=== PATIENT | male | born 1970 | race Caucasian/White ===

== ENCOUNTER 2021-10-23 09:17 | Outpatient (CLI) | payer OTHER, SELFPAY ==
--- NOTE | 2021-10-28 15:16 | WPDHOLTEREM ---
Holter/Event Monitor Holter/Event Monitor Date of procedure: 10/23/21 Holter/Event Procedure: 24 Hr Holter Monitor Indications: Conduction disorder Conclusion: 1. 24 hour holter monitor on 10/23/21. 2. Underlying rhythm is sinus rhythm. HR range 45-133 bpm; average HR 71 bpm. 3. There are 13 premature supraventricular complexes. No supraventricular tachycardia. 4. There are 3,612 premature ventricular complexes, 146 ventricular bigeminy and 46 ventricular trigeminy. No ventricular tachycardia. 5. No sinoatrial or atrioventricular blocks. No significant pauses greater than 2 seconds. 6. No symptoms available for correlation.
== END 2021-10-23 09:18 | disposition home or self-care (01) ==
PROVIDERS: PCP Family Medicine; Visit Provider Family Medicine
DX: I45.9 Conduction disorder, unspecified (principal); I10 Essential (primary) hypertension
CPT/HCPCS: 93225; 93226

== ENCOUNTER 2022-03-12 06:59 | Outpatient (CLI) | payer OTHER, SELFPAY ==
--- NOTE | 2022-03-30 16:07 | WPDHOMESLEEP ---
Sleep Study - Home Unattended Date of Study: 03/12/22 Ordering Provider: Abdullahi Us DO Interpreting Provider: Penelope Dimas DO Home Sleep Study Type: Watch PAT Height: 1.93 m Weight: 124.738 kg Body Mass Index: 33.5 Neck Circumference (inches): 17 [place]: 11 Reason for Sleep Study Daytime hypersomnia Sleep History The patient is a 51-year-old male with hypertension that had a sleep study ordered by his school patrol for evaluation of sleep apnea. He denies awakening from sleep short of breath. He denies awakening at night with heartburn, belching or cough. He frequently snores loud enough that others complain. He rarely has trouble sleeping when he has a cold. He denies waking up gasping for air throughout the night. He occasionally has breathing problems at night observed by himself or others. He rarely sweats excessively at night. He rarely has heart palpitations or irregular heartbeats during the night. He occasionally falls asleep during the day and occasionally falls asleep while driving. He denies sleep paralysis, cataplexy and hypnagogic / hypnopompic hallucinations. He rarely has trouble at school or work due to sleepiness. He denies feeling afraid of going to sleep. He rarely has nightmares. He occasionally remembers his dreams. He frequently has thoughts racing through his mind. He occasionally feels sad, depressed or anxious. He occasionally has muscular tension. He rarely notices parts of his body jerk. He denies kicking during the night. He denies having crawling and aching feelings in his legs as well as leg pain during the night. He denies grinding his teeth during sleep and denies awakening with morning jaw pain. He denies being awakened by pain during the day and denies being awakened by pain during the night. He rarely wakes up feeling stiff in the morning. He denies waking up with sore achy muscles. He occasionally wakes up with pain in the neck, spine or other joints. The patient goes to bed at 9:30 p.m. on weekdays and at 10:00 p.m. on the weekends. It takes him a few minutes to fall asleep. He wakes up 2-3 times throughout the night to urinate. He is able to fall back asleep within a few minutes. He wakes up at 3:45 a.m. on weekdays and at 6:00 a.m. on the weekends. He typically gets 6 and hours of sleep. He will stay in bed for 5-10 minutes after waking up in the morning. He currently lives with his . He does not consume any caffeinated beverages within 2 hours of bedtime. He does not engage in physical exercise before bedtime. He will watch television before falling asleep. He denies taking naps in the afternoon or the evening. He drinks 1 caffeinated soda per day. He drinks 3-4 beers per week. He denies tobacco and recreational drug use. [facility] Past Medical History Medical History Amputation finger BMI 30.0-30.9,adult BMI 32.0-32.9,adult BMI 33.0-33.9,adult BMI 34.0-34.9,adult Edema Elevated blood pressure, situational Essential hypertension Screening for lipid disorders Screening for prostate cancer Skipped heart beats Stress at home Family History Family History Father Cerebrovascular accident Neuropathy COPD (chronic obstructive pulmonary disease) Mother Hypertension Social History Social History Smoking status: Never smoker Alcohol intake: current Medications Home Medications Medication Instructions Recorded Confirmed Type amlodipine 10 mg tablet 10 mg PO DAILY #90 tabs 01/22/22 03/22/22 Rx omega 1-lcn-oyg-fish oil 1,000 mg 1 cap PO DAILY 01/22/22 03/22/22 History (120 mg-180 mg) capsule (Fish Oil) Sleep Procedure The sleep study was completed using [employer] a technically adequate device with seven channels: peripheral arterial tone, actigraphy, body position, snore, respiratory movement, pulse oximetry, sleep stag
[2022-03-30 16:15] VITALS: BMI 33.5
== END 2022-03-15 11:43 | disposition home or self-care (01) ==
PROVIDERS: PCP Family Medicine; Visit Provider Internal Medicine Cardiovascular Disease
DX: G47.10 Hypersomnia, unspecified (principal); G47.33 Obstructive sleep apnea (adult) (pediatric)
CPT/HCPCS: 95800

== ENCOUNTER 2022-03-19 14:31 | Outpatient (CLI) | payer OTHER, SELFPAY ==
--- NOTE | 2022-03-19 14:41 | ECHO_ITS ---
Patient Info Name: Manjeet Deras Age: 51 years : 1970 Gender: Male Ht: 76 in Wt: 275 lbs BSA: 2.62 m2 HR: 78 bpm BP: 138 / 91 mmHg Heart Rhythm: Sinus Rhythm Technical Quality: Fair Exam Date: 03/19/2022 2:56 PM Exam Location: [facility] Pulmonary Patient Status: Outpatient Admit Date: 03/19/2022 Staff Ordering Physician: Abdullahi Us DO Insurance Adjuster: Becca Najera RDCS Attending Provider: Abdullahi Us DO Referring Physician: Magen EUBANKS; Exam Type: CA echo doppler color flow Study Info Indications R06.09 - Other forms of dyspnea Complete two-dimensional, color flow and Doppler transthoracic echocardiogram is performed. Summary 1. Complete two-dimensional, color flow and Doppler transthoracic echocardiogram is performed. 2. Left ventricular chamber dimension is normal. 3. Left ventricular systolic function is normal, estimated at 60-65%. 4. There is moderately increased left ventricular wall thickness. 5. The left ventricular diastolic function is grade I diastolic dysfunction. 6. E/e' 13 is mildly elevated. 7. Left atrial chamber dimension is mildly enlarged. 8. There is trace tricuspid valve regurgitation. 9. No pulmonary hypertension, estimated pulmonary arterial systolic pressure is 15 mmHg. 10. There is trivial pericardial effusion. Left Ventricle E/e' 13 is mildly elevated. Left ventricular chamber dimension is normal. Left ventricular systolic function is normal, estimated at 60-65%. There is moderately increased left ventricular wall thickness. The left ventricular diastolic function is grade I diastolic dysfunction. Right Ventricle Right ventricular systolic function is normal and with normal TAPSE 2.9 cm. Right ventricular chamber dimension is normal. Left Atria Left atrial chamber dimension is mildly enlarged. Right Atria Right atrial chamber dimension is normal. Aortic Valve The aortic valve is trileaflet. There is no aortic valve stenosis. There is no aortic valve regurgitation. Pulmonic Valve There is no pulmonic regurgitation. Mitral Valve There is no mitral valve stenosis. There is no mitral valve regurgitation. Tricuspid Valve There is trace tricuspid valve regurgitation. No pulmonary hypertension, estimated pulmonary arterial systolic pressure is 15 mmHg. Pericardium/Pleural There is trivial pericardial effusion. Inferior Vena Cava Normal inferior vena cava with >50% collapse upon inspiration consistent with normal right atrial pressure, 5 mmHg. Aorta The aortic root size at the sinus of Valsalva is normal. Left Ventricular Outflow Tract Name Value Normal LVOT 2D LVOT Diameter 2.4 cm LVOT Doppler LVOT Peak Gradient 6 mmHg LVOT Mean Gradient 3 mmHg LVOT VTI 24 cm LVOT VTI/AV VTI Ratio 0.7 LVOT Stroke Volume 114 ml LVOT CO 7.4 l/min LVOT CI 2.8 l/min/m2 Pulmonic Valve
== END 2022-03-19 14:32 | disposition home or self-care (01) ==
LOC: ANHCARD 14:33
PROVIDERS: PCP Family Medicine; Visit Provider Internal Medicine Cardiovascular Disease
DX: R06.09 Other forms of dyspnea (principal)
CPT/HCPCS: 93306

== ENCOUNTER 2022-04-19 11:50 | Outpatient (CLI) | payer OTHER, SELFPAY ==
--- NOTE | ~2022-04-19 | US_ITS ---
EXAMINATION:US venous doppler LE RT INDICATION:Lower extremity edema TECHNIQUE: Multiple grayscale, color flow and Doppler images of the right lower extremity deep venous systems were obtained and reviewed. COMPARISON:No prior studies for comparison. FINDINGS: The common femoral, superficial femoral and popliteal veins demonstrate normal respiratory variation, augmentation and compressibility. Color flow is also seen within the posterior tibial, pe roneal and profunda veins. There is superficial thrombosis of the right greater and lesser saphenous veins. IMPRESSION: 1: No lower extremity deep venous thrombosis. 2: Superficial venous thrombosis of the right greater and lesser saphenous veins. Reviewed, dictated and finalized at location B. R SALES IMPRESSION: 1: No lower extremity deep venous thrombosis. 2: Superficial venous thrombosis of the right greater and lesser saphenous vei ns.
== END 2022-04-19 11:51 | disposition home or self-care (01) ==
PROVIDERS: PCP Family Medicine; Visit Provider Internal Medicine Cardiovascular Disease
DX: R60.9 Edema, unspecified (principal); I82.811 Embolism and thrombosis of superficial veins of right lower extremity
CPT/HCPCS: 93971

== ENCOUNTER 2022-06-25 02:52 | Day surgery (SDC) | payer OTHER, SELFPAY ==
[2022-06-15 14:09] VITALS: BMI 34.0
[2022-06-25 09:08] VITALS: BP 147/90; PULSE 80; RESP 20; TEMP 36.4; O2SAT 100
[2022-06-25] MEDS: LACTATED RINGERS 1,000 ML 150 ML IV CONT (09:10)
--- NOTE | 2022-06-25 09:35 | WPDANESEPPF ---
Anes - Initial Pre Proc Eval Procedure: Operation Date: 06/25/22 10:15 Proposed Procedures p Screening Colonoscopy - Chava Reyna MD Date/Time: 06/25/22 09:35 Surgeon: Chava Reyna MD Pre Op Diagnosis: neoplasm screening Patient Data Age: 51 Gender: M Height: 1.93 m Weight: 127.5 kg Last Vital Signs Temp 36.4 C 06/25/22 09:08 Pulse 80 06/25/22 09:08 Resp 20 06/25/22 09:08 BP 147/90 H 06/25/22 09:08 Pulse Ox 100 06/25/22 09:08 O2 Del Method Room Air 06/25/22 09:08 Allergies Allergy/AdvReac Type Severity Reaction Status Date / Time No Known Allergies Allergy Mild Verified 06/25/22 09:07 Home Medications Medication Instructions Recorded Confirmed Type amlodipine 10 mg tablet 10 mg PO DAILY #90 tabs 01/22/22 06/25/22 Rx omega 5-kzz-ljs-fish oil 1,000 mg 1 cap PO DAILY 01/22/22 06/25/22 History (120 mg-180 mg) capsule (Fish Oil) apixaban 5 mg tablet (Eliquis) 5 mg PO BID #120 tabs 05/13/22 06/25/22 Rx Patient hx anesthesia problems: none Family hx anesthesia problems: none Results Review: All pre-operative results and documents have been reviewed as part of the pre-operative evaluation. PMFSH Past Medical History Medical History Amputation finger BMI 30.0-30.9,adult BMI 32.0-32.9,adult BMI 33.0-33.9,adult BMI 34.0-34.9,adult BMI over 35 Edema Elevated blood pressure, situational Essential hypertension Screening for lipid disorders Screening for prostate cancer Skipped heart beats Stress at home Family History Family History Father Cerebrovascular accident Neuropathy COPD (chronic obstructive pulmonary disease) Mother Hypertension Sibling No problems noted. Social History Social History Smoking status: Never smoker Second hand tobacco smoke exposure: No Alcohol intake: current Drinks per week: 3 Substance use: never Substance use type: does not use Lack of Transportation: No Lack of Food: Never True Current Housing: I Have Housing Concerned About Future Housing: No Difficulty Paying Gas/Electric Bills: No Difficulty Paying for Meds: No Currently Unemployed: No Education: Bachelor's Degree Difficulty w/ Childcare or Family Care: No Living arrangements: with family Occupation/Education: occupation Additional occupation/education comments: Back [employer] Gender identity (if verbalized by the patient): Male Spiritual care concerns: No Anes - Eval Final PreProcedure Day of Procedure 06/25/22 09:35 Patient weight: obese Heart: regular rate and rhythm Lungs: clear to auscultation and normal air movement Airway: Mallampati scale class II Neurological: alert and oriented Last oral intake: >/= 8 hours ASA classification: III Emergent: no Anesthetic plan: proceed Anesthesia type and monitoring: general GIVS Results Review: All pre-operative results and documents have been reviewed as part of the pre-operative evaluation. Informed Consent: The patient's anesthetic plan and its attendant risks and benefits were discussed with the patient/family/POA. Questions were solicited and answers provided to the satisfaction of the patient/family/POA.
--- NOTE | 2022-06-25 09:50 | PM.HPGS ---
History of Present Illness History of Present Illness Consent: Risks, benefits, and alternatives have been discussed and questions answered. Patient agrees to proceed with procedure. Chief complaint: neoplasm screening Narrative: Manjeet Deras is a 51 year old male here for first screening colonoscopy Review of Systems Constitutional: Constitutional: Denies headache(s) and Denies weakness Eyes: Eyes: Denies blurry vision ENT: Reports Normal hearing present, Denies headache(s) and Denies neck pain Cardiovascular: Cardiovascular: Denies chest pain and Denies dyspnea Respiratory: Respiratory: Denies dyspnea Gastrointestinal: Gastrointestinal: Reports no additional gastrointestinal complaints Genitourinary: Genitourinary: Denies dysuria Musculoskeletal: Musculoskeletal: Denies neck pain Integumentary/Breasts: Skin/Breast: Denies dry skin Neurologic: Reports Normal hearing present, Denies headache(s) and Denies weakness Psychiatric: Psychiatric: Denies anxiety Endocrine: Endocrine: Denies change in body appearance Hematologic/Lymphatic: Hematologic/Lymphatic: Denies easy bleeding Allergic/Immunologic: Allergic/Immunologic: Denies urticaria PMFSH Past Medical History Medical History Amputation finger BMI 30.0-30.9,adult BMI 32.0-32.9,adult BMI 33.0-33.9,adult BMI 34.0-34.9,adult BMI over 35 Edema Elevated blood pressure, situational Essential hypertension Screening for lipid disorders Screening for prostate cancer Skipped heart beats Stress at home Family History Family History Father Cerebrovascular accident Neuropathy COPD (chronic obstructive pulmonary disease) Mother Hypertension Sibling No problems noted. Social History Social History Smoking status: Never smoker Second hand tobacco smoke exposure: No Alcohol intake: current Drinks per week: 3 Substance use: never Substance use type: does not use Lack of Transportation: No Lack of Food: Never True Current Housing: I Have Housing Concerned About Future Housing: No Difficulty Paying Gas/Electric Bills: No Difficulty Paying for Meds: No Currently Unemployed: No Education: Bachelor's Degree Difficulty w/ Childcare or Family Care: No Living arrangements: with family Occupation/Education: occupation Additional occupation/education comments: Nurses Director Gender identity (if verbalized by the patient): Male Spiritual care concerns: No Meds Home Medications and Allergies Home Medications Medication Instructions Recorded Confirmed Type amlodipine 10 mg tablet 10 mg PO DAILY #90 tabs 01/22/22 06/25/22 Rx omega 3-xmz-wgr-fish oil 1,000 mg 1 cap PO DAILY 01/22/22 06/25/22 History (120 mg-180 mg) capsule (Fish Oil) apixaban 5 mg tablet (Eliquis) 5 mg PO BID #120 tabs 05/13/22 06/25/22 Rx Allergies Allergy/AdvReac Type Severity Reaction Status Date / Time No Known Allergies Allergy Mild Verified 06/25/22 09:07 Vital Signs Vital Signs - 24 hr 06/25/22 09:08 Temperature 97.6 F Pulse Rate 80 Respiratory Rate 20 Blood Pressure 147/90 H Pulse Oximetry 100 Oxygen Delivery Room Air Exam Const: General: comfortable and no acute distress HENMT: Face/Nose/Sinus: Normal nares present Eyes: General: appearance normal, both eyes and all related structures Neck: Neck: no JVD Resp: Auscultation: clear to auscultation bilaterally Cardio: Rate: regular rate Rhythm: regular rhythm GI: Inspection: non-distended GI Palp: Yes Soft to palpation Skin: General skin exam: normal color Neuro: General: gait normal Speech: normal speech Extrem: General: normal to inspection Psych: Mental Status: mental status grossly normal Assessment and Plan Assessment and plan (1) Screening for malignant neoplasm of colon: Code(s): Z12.11 - Encounter for
[2022-06-25 10:36] VITALS: BP 109/77; PULSE 63; RESP 18; O2SAT 100
[2022-06-25 10:46] VITALS: BP 104/64; PULSE 65; RESP 18; O2SAT 99
[2022-06-25 10:56] VITALS: BP 115/81; PULSE 58; RESP 18; O2SAT 99
== END 2022-06-25 11:02 | disposition home or self-care (01) ==
PROVIDERS: PCP Family Medicine; Visit Provider Internal Medicine Gastroenterology
PROC: 0DJD8ZZ Inspection of Lower Intestinal Tract, Via Natural or Artificial Opening Endoscopic (ICD-10-PCS; CPT 45378; principal; 2022-06-25 10:15)
DX: Z12.11 Encounter for screening for malignant neoplasm of colon (principal); K63.5 Polyp of colon; K64.8 Other hemorrhoids; I10 Essential (primary) hypertension; F10.90 Alcohol use, unspecified, uncomplicated; Z82.49 Family history of ischemic heart disease and other diseases of the circulatory system
CPT/HCPCS: 45385; 88305; J2001; J2704; J7120

== ENCOUNTER 2022-09-15 11:21 | Emergency (ER) | payer OTHER, SELFPAY ==
--- NOTE | ~2022-09-15 | CT_ITS ---
EXAMINATION: CTA BRAIN/CAROTID DATE: 09/15/2022 12:48 INDICATION: Vertigo TECHNIQUE: Computed tomographic angiography (CTA) of the head and neck was performed with 100 mL Omni paque-350 intravenous contrast. Multiplanar reconstructions and maximum intensity projection 3D-recon structions of the carotid arteries and of the intracranial arteries were created by the technologist on a separate workstation. Precontrast CT of the head was also obtained. Automated exposure control and iterative reconstruction technique were employed.The dose-length product was 1887.30 mGy-cm. COMPARISON: None. FINDINGS: Carotid arteries: Visualized portion of the thoracic aorta is normal in caliber with no dissection or evident atheroscl erosis. Normal variant independent origin of the left vertebral artery arising directly from the aort ic arch. There is no evident atherosclerotic plaque with 0% stenosis of the right and left carotid bu lbs relative to normal distal artery lumen diameter (NASCET criteria). Cervical soft tissues are unre markable. Mild dependent atelectasis in the visualized upper lungs. Mild cervical spondylosis. Head: No acute intracranial hemorrhage, acute infarction or abnormal extra axial fluid collection. Ventricl es are normal and symmetric. No mass/mass effect. No abnormally enhancing brain lesions. The orbits, paranasal sinuses and mastoid air cells are normal. Intracranial arteries There is no hemodynamically significant stenosis in the vertebral, basilar and internal carotid arter ies. Vertebral arteries are codominant. There are no aneurysms identified. Both A1 and P1 segments a re patent. The left P1 segment is diminutive with additional supply to the posterior cerebral artery supplied via a larger caliber left posterior commuting artery. There is also a patent right posterior commuting artery which is of smaller caliber than the right P1 segment. Cerebral arterial arborizati on appears symmetric. IMPRESSION: 1. 0% stenosis of the right and left carotid bulbs relative to normal distal artery lumen diameter (N ASCET criteria). 2. Normal brain and cerebral CT angiogram with no aneurysm or evident cerebral arterial stenosis. Reviewed, dictated and finalized at location A. IMPRESSION: 1. 0% stenosis of the right and left carotid bulbs relative to normal distal ar amrik lumen diameter (NASCET criteria). 2. Normal brain and cerebral CT angiogram with no aneurysm or evident cerebral arterial stenosis.
[2022-09-15 11:24] VITALS: BP 138/100; PULSE 76; RESP 16; TEMP 37.1; O2SAT 100
--- NOTE | 2022-09-15 11:28 | ECG_ITS ---
Measurements Intervals [place] Rate: 65 P: 51 ME: 175 QRS: 8 QRSD: 109 T: 36 QT: 412 QTc: 430 Interpretive Statements SINUS RHYTHM LATERAL MYOCARDIAL INFARCTION , OF INDETERMINATE AGE [40+ ms Q WAVE AND/OR ST/T ABNORMALITY IN I/aVL/V5/V6] NO PREVIOUS ECG AVAILABLE FOR COMPARISON Electronically Signed On 09-15-2022 15:57:16 CDT by Becki Whittington M.D.
[2022-09-15] MEDS: PROMETHAZINE HCL 25 MG/ML AMPUL 12.5 MG IV PUSH (11:52)
[2022-09-15 12:10] LABS: Basophils Percent Auto 0.3 % (0.2-1.2); Eosinophils Percent Auto 0.6 % (0-4.4); Hematocrit 38.6 % (42.0-52.0); Hemoglobin 13.1 g/dL (14.0-18.0); Immature Granulocyte Absolute 0.02 K/mm3 (0.00-0.031); Immature Granulocyte Percent A 0.3 % (0-0.5); Lymphocytes Absolute Auto 1.11 K/mm3 (0.9-3.2); Lymphocytes Percent Auto 17.2 % (18.3-44.2); Mean Corpuscular HGB Conc 33.9 g/dl (32-36); Mean Corpuscular Hemoglobin 27.5 pg (26-34); Mean Corpuscular Volume 81.1 fl (80-100); Mean Platelet Volume 9.9 fl (7.4-10.4); Monocytes Absolute Auto 0.3 K/mm3 (0.1-0.6); Monocytes Percent Auto 4.7 % (2.6-8.5); Neutrophils Percent Auto 76.9 % (45.5-73.1); Platelet Count Result 171 k/mm3 (150-375); Red Blood Count 4.76 M/mm3 (4.6-6.20); Red Cell Distribution Width 13.2 % (11.5-14.5); White Blood Count 6.4 K/mm3 (4.5-10.0)
--- NOTE | 2022-09-15 12:17 | ED.DIZZY ---
HPI - Dizziness General Chief Complaint: Dizziness Stated Complaint: dizziness Time Seen by Provider: 09/15/22 12:04 History of Present Illness HPI Narrative: Patient is a 52-year-old male with a history of hypertension, hyperlipidemia, MILDRED presenting with vertigo. Patient states that he started using a CPAP machine several months ago and since then he has had ongoing sinus problems. States that he has been taking Claritin per his PCPs recommendation which was working until about a week ago. States that his sinuses have been increasingly clogged over the last week. States that he has had a couple episodes of vertigo. Today she was at work and while in the meeting he experienced persistent vertigo. States that he tried to walk it off but he became nauseated and very warm. States that he had an episode of emesis. EMS was called and he received Zofran with improvement in his nausea. Patient states that if he stays completely still the vertigo resolves and then it returns if he moves. He also complains that his left ear feels clogged. He denies any pain. No headache, chest pain, back pain. No shortness of breath, palpitations, lightheadedness, leg swelling, fevers or chills. Related Data Home Medications Medication Instructions Recorded Confirmed omega 3-mnz-siy-fish oil 1,000 mg 2 cap PO DAILY 08/16/22 08/16/22 (120 mg-180 mg) capsule (Fish Oil) Allergies Allergy/AdvReac Type Severity Reaction Status Date / Time No Known Allergies Allergy Mild Verified 09/15/22 11:30 Review of Systems Review of Systems: All systems reviewed & are unremarkable except as noted in HPI and below PMFSH Past Medical History Medical History Amputation finger BMI 30.0-30.9,adult BMI 32.0-32.9,adult BMI 33.0-33.9,adult BMI 34.0-34.9,adult BMI over 35 Constipation Edema Elevated blood pressure, situational Essential hypertension Nasal congestion Screening for lipid disorders Screening for prostate cancer Skipped heart beats Stress at home Family History Family History Father Cerebrovascular accident Neuropathy COPD (chronic obstructive pulmonary disease) Mother Hypertension Sibling No problems noted. 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 HEAD: Normocephalic, atraumatic. EYES: PERRLA and EOMI. ENT: + Nasal congestion, mucous membranes moist. Moderate amount of cerumen in bilateral ear canals, visualized portions of TMs appear normal NECK: Supple. CHEST: Clear to auscultation. No respiratory distress. HEART: Regular rate and rhythm. No murmur heard. Normal peripheral pulses. ABDOMEN: Soft, nontender, nondistended EXTREMITIES: Normal range of motion. No edema. SKIN: Warm, dry, no rash. NEURO: No focal deficits. Alert and oriented x3. 5 out of 5 strength in all extremities, no sensory deficits, no pronator drift, coordination is intact in upper and lower extremities PSYCH: Normal mood and affect. Course Vital Signs Vital signs: Vital Signs Temperature 98.7 F 09/15/22 11:24 Pulse Rate 76 09/15/22 11:24 Respiratory Rate 16
[2022-09-15 12:21] LABS: INR 1.1; Prothrombin Time 14.2 Seconds (11.1-14.7)
[2022-09-15 12:22] LABS: Alanine Aminotransferase 25 U/L (6-50); Albumin Level 4.5 g/dL (3.5-5.1); Alkaline Phosphatase 77 U/L (38-126); Anion Gap 5 mmol/L (8-16); Aspartate Amino Transferase 26 U/L (17-59); Bilirubin,Total 0.6 mg/dL (0.2-1.3); Blood Urea Nitrogen 13 mg/dL (9-20); Carbon Dioxide 28 mmol/L (22-30); Chloride 104 mmol/L (98-107); Estimated CRCL calculation 119 ml/min; Estimated Glomerular Filt Rate > 60; Glucose 119 mg/dL (65-110); Lipase 63 U/L (23-300); Sodium 137 mmol/L (137-145)
[2022-09-15 12:30] VITALS: BP 126/86; PULSE 58; RESP 16; O2SAT 100
[2022-09-15] MEDS: MECLIZINE HCL 25 MG TABLET PO (12:32)
[2022-09-15 12:33] LABS: Troponin I < 0.012 ng/mL (0.000-0.034)
[2022-09-15] MEDS: SODIUM CHLORIDE 0.9% IV 1,000 ML 999 ML IV CONT (12:33)
[2022-09-15 15:20] VITALS: BP 138/85; PULSE 74; RESP 16; O2SAT 100
== END 2022-09-15 15:34 | disposition home or self-care (01) ==
PROVIDERS: Emergency Medicine; Emergency Provider Emergency Medicine; PCP Family Medicine
DX: H81.10 Benign paroxysmal vertigo, unspecified ear (principal); I10 Essential (primary) hypertension; E78.5 Hyperlipidemia, unspecified; G47.33 Obstructive sleep apnea (adult) (pediatric); Z89.029 Acquired absence of unspecified finger(s)
CPT/HCPCS: 36415; 70496; 70498; 80053; 83690; 84484; 85025; 85610; 85730; 93005; 96361; 96374; 99284; A9270; J2550; J7030; Q9967

== ENCOUNTER 2022-09-24 13:31 | Outpatient (CLI) | payer OTHER, SELFPAY ==
--- NOTE | ~2022-09-24 | CT_ITS ---
EXAMINATION: CT sinus wo con DATE: 09/24/2022 13:52 INDICATION: Sinusitis TECHNIQUE: Computed tomography (CT) of the paranasal sinuses was performed without intravenous contra st. The dose-length product (DLP) was 312.93 mGy-cm. Iterative reconstruction was used. COMPARISON: 09/15/2022 FINDINGS: There is normal development and pneumatization of the paranasal sinuses. There is mild muco darryn thickening inferiorly in the right maxillary sinus. The frontal, sphenoid, ethmoid, and maxillary sinuses are otherwise clear. The bilateral ostiomeatal complexes are patent. Visualized soft tissues are unremarkable. IMPRESSION: 1. Mild mucosal thickening of the right maxillary sinus. Reviewed, dictated and finalized at location B.
== END 2022-09-24 13:32 | disposition home or self-care (01) ==
PROVIDERS: PCP Family Medicine; Visit Provider Otolaryngology
DX: R09.81 Nasal congestion (principal)
CPT/HCPCS: 70486

== ENCOUNTER 2023-11-14 09:36 | Outpatient (CLI) | payer OTHER, SELFPAY ==
--- NOTE | 2023-11-14 09:59 | ECHO_ITS ---
Patient Info Name: Manjeet Deras Age: 53 years : 1970 Gender: Male Ht: 76 in Wt: 285 lbs BSA: 2.67 m2 HR: 64 bpm BP: 151 / 98 mmHg Technical Quality: Good Exam Date: 11/14/2023 10:10 AM Exam Location: Echo Lab Patient Status: Outpatient Admit Date: 11/14/2023 Staff Ordering Physician: Abdullahi Us DO Force Adjustment Supervisor: Maria Elena Cantu RDCS Attending Provider: Abdullahi Us DO Referring Physician: Maegn EUBANKS; Exam Type: CA echo doppler color flow Study Info Indications R06.09 - Other forms of dyspnea Complete two-dimensional, color flow and Doppler transthoracic echocardiogram is performed. Summary 1. Complete two-dimensional, color flow and Doppler transthoracic echocardiogram is performed. 2. Left ventricular chamber dimension is normal. 3. Left ventricular systolic function is normal, estimated at 65-70%. 4. There is moderate asymmetric septal increased left ventricular wall thickness. Mean resting LVOT gradient of 5 mmHg is minimal obstruction but does suggest hypertrophic cardiomyopathy. 5. The left ventricular diastolic function is grade I diastolic dysfunction. 6. E/e' 12 is mildly elevated. 7. Left atrial chamber dimension is severely enlarged. 8. No pulmonary hypertension, estimated pulmonary arterial systolic pressure is 23 mmHg. 9. There is trace pulmonic regurgitation. Left Ventricle There is moderate asymmetric septal increased left ventricular wall thickness. Mean resting LVOT gradient of 5 mmHg is minimal obstruction but does suggest hypertrophic cardiomyopathy. Left ventricular chamber dimension is normal. Left ventricular systolic function is normal, estimated at 65-70%. The left ventricular diastolic function is grade I diastolic dysfunction. E/e' 12 is mildly elevated. Right Ventricle Right ventricular chamber dimension is normal. Right ventricular systolic function is normal. Left Atria Left atrial chamber dimension is severely enlarged. Right Atria Right atrial chamber dimension is normal. Aortic Valve The aortic valve is trileaflet. There is no aortic valve stenosis. There is no aortic valve regurgitation. Pulmonic Valve There is trace pulmonic regurgitation. Mitral Valve There is no mitral valve stenosis. There is no mitral valve regurgitation. Tricuspid Valve There is no tricuspid valve regurgitation. No pulmonary hypertension, estimated pulmonary arterial systolic pressure is 23 mmHg. Pericardium/Pleural There is no pericardial effusion. Inferior Vena Cava Normal inferior vena cava with >50% collapse upon inspiration consistent with normal right atrial pressure, 5 mmHg. Aorta The aortic root size at the sinus of Valsalva is normal. Left Ventricular Outflow Tract Name Value Normal LVOT 2D LVOT Diameter 2.2 cm LVOT Doppler LVOT Peak Gradient 9 mmHg LVOT Mean Gradient 6 mmHg LVOT VTI 36 cm LVOT VTI/AV VTI Ratio 1.1 LVOT Stroke Volume 144 ml LVOT CO 8.8 l/min LVOT CI 3.3 l/min/m2 Pulmonic Valve
== END 2023-11-14 09:37 | disposition home or self-care (01) ==
LOC: ANHCARD 09:37
PROVIDERS: PCP Family Medicine; Visit Provider Internal Medicine Cardiovascular Disease
DX: R06.09 Other forms of dyspnea (principal); I51.89 Other ill-defined heart diseases
CPT/HCPCS: 93306

== ENCOUNTER 2024-04-27 08:15 | Emergency (ER) | payer OTHER, SELFPAY ==
--- NOTE | ~2024-04-27 | XR_ITS ---
XR chest 2V DATE: 04/27/2024 08:56 INDICATION: Difficulty breathing for 2 days. Nonsmoker. TECHNIQUE: 3 radiographs, 2 projections, including 2 frontal views COMPARISON: 12/03/2011 2 view chest FINDINGS: There is mild bibasilar infiltrate and/or atelectasis, greater on the left, with evidence o f a small left pleural effusion. The lungs are otherwise clear. Normal heart size. No hilar or mediastinal enlargement. IMPRESSION: Mild bibasilar infiltrate or atelectasis, left greater than right and small left pleural effusion Reviewed, dictated and finalized at location A. SETTER IMPRESSION: Mild bibasilar infiltrate or atelectasis, left greater than right a nd small left pleural effusion
[2024-04-27 08:24] VITALS: BP 145/93; PULSE 84; RESP 16; TEMP 36.2; O2SAT 100
--- NOTE | 2024-04-27 08:33 | ED_ITS ---
HPI - URI/Sore Throat General Chief Complaint: Upper Respiratory Infection Stated Complaint: Chest Congestion Time Seen by Provider: 04/27/24 08:34 Source: patient, RN notes reviewed and old records reviewed Mode of arrival: ambulatory Limitations: no limitations History of Present Illness HPI Narrative: Patient with history of cardiomyopathy presents with complaints of chest congestion for approximately 1 week. He reports slight cough, says he does not believe it is much worse than baseline. Denies any unusual swelling in the ankles or legs. Denies any fatigue. Reports that chest feels most congested when lying flat. Says that when he does cough, is nonproductive. T-max 99.8?. Has not been taking anything for his symptoms. Says that he came in today not because symptoms are worsening, but because they are not getting better. Related Data Home Medications Medication Instructions Recorded Confirmed omega 2-dny-dve-fish oil 1,000 mg 2 cap PO DAILY 08/16/22 04/27/24 (120 mg-180 mg) capsule (Fish Oil) triamterene 37.5 1 tablet PO DAILY 04/27/24 04/27/24 mg-hydrochlorothiazide 25 mg tablet Allergies Allergy/AdvReac Type Severity Reaction Status Date / Time No Known Allergies Allergy Mild Verified 04/27/24 08:33 Review of Systems Review of Systems: All systems reviewed & are unremarkable except as noted in HPI and below Constitutional: Constitutional: Reports no additional constitutional complaints ENT: Reports system reviewed and no additional complaints, except as documented Cardiovascular: Cardiovascular: Reports as per HPI and Reports no additional cardiovascular complaints Respiratory: Respiratory: Reports as per HPI and Reports no additional respiratory complaints Gastrointestinal: Gastrointestinal: Reports no additional gastrointestinal complaints [facility] Past Medical History Medical History Amputation finger BMI over 35 Cerumen impaction Constipation Edema Elevated blood pressure, situational Essential hypertension 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 Gender identity (if verbalized by the patient): Male Spiritual care concerns: No Exam Const: General: cooperative, no acute distress, alert and awake Orientation/consciousness: oriented to person, oriented to place and oriented to time HENMT: Head: normal to inspection Mouth: Yes moist mucous membranes Resp: Effort & Inspection: normal respiratory effort and able to speak in complete sentences Auscultation: clear to auscultation bilaterally, no crackles, no rales, no rhonchi and no wheezes Cardio: Palpation: normal PMI Rate: regular rate Rhythm: regular rhythm Heart sounds: S1 normal heart sound present and S2 normal heart sound present Neuro: General: oriented to person, oriented to place and oriented to time Cranial nerves: Yes CN's II-XII intact bilaterally Psych: Appearance: grossly normal Thought process: Normal thought process present Insight: Good insight present (Psych) Judgement: Good judgement present (Psych) Course Course Level of Care: Express Care Visit Vital Signs Vital signs: Vital Signs Temperature 97.2 F L 04/27/24 08:24 Pulse Rate 84 04/27/24 08:24 Respiratory Rate 16 04/27/24 08:24 Blood Pressure 145/93 H 04/27/24 08:24 Pulse Oximetry 100 04/27/24 08:24 Oxygen Delivery Room Air 04/27/24 08:24 Temperature 97.2 F L 04/27/24 08:24 Pulse Rate 84 04/27/24 08:24 Respiratory Rate 16 04/27/24 08:24 Blood Pressure 145/93 H 04/27/24 08:24 Pulse Oximetry 100 04/27/24 08:24 Oxygen Delivery Room Air 04/27/24 08:24 MDM - URI/Sore Throat MDM Narrative Medical decision making narrative: Chest x-ray concerning for bibasilar pneumonia and right pleural effusion. Patient advised follow-up with primary care provider and casino attendant without fail. Emergency department immediately for new or worse symptoms. He verbalizes understanding Discharge instructions reviewed with patient, as well as provided in writing per nursing staff. The instructions also include specific and strict return/GO TO THE ER as well as f/u information. All questions have been answered, and the patient deny any further questions with discharge and discharge plan. Some parts of this dictation were generated by voice recognition software and may contain typographical and/or grammatical inaccuracies. Differential Diagnosis Differential diagnosis: Likely upper respiratory infection, otitis media, viral infection, influenza and pharyngitis Medical Records Attestation: I reviewed the patient's medical records. Imaging Data My impression: Bibasilar infiltrate, right pleural effusion Radiologist's impression: [facility] [address] [place] [address] XRay Report Signed Patient: Manjeet Deras : 1970 MR#: [id number] Age: 53 Acct:[id number] Loc: [facility] ADM Date: 04/27/24Attending Dr: Ordering Physician: Inge Parker FNP Date of Service: 04/27/24 Procedure(s): XR chest 2V Accession Number(s): [id number] cc: Inge Parker FNP; Sarah Joel KEY ATTENDANT~ XR chest 2V DATE: 04/27/2024 08:56 INDICATION: Difficulty breathing for 2 days. Nonsmoker. TECHNIQUE: 3 radiographs, 2 projections, including 2 frontal views COMPARISON: 12/03/2011 2 view chest FINDINGS: There is mild bibasilar infiltrate and/or atelectasis, greater on the left, with evidence of a small left pleural effusion. The lungs are otherwise clear. Normal heart size. No hilar or mediastinal enlargement. IMPRESSION: Mild bibasilar infiltrate or atelectasis, left greater than right and small left pleural effusion Reviewed, dictated and finalized at location A. OUS CHLORIDE HELPER Dictated By: Hector Merritt MD 04/27/24 0900 Signed By: <Electronically signed by Hector Merritt MD in OV> Discharge Plan Discharge Clinical Impression: Pneumonia Qualifiers: Pneumonia type: due to unspecified organism Laterality: bilateral Lung location: lower lobe of lung Qualified Code(s): J18.9 - Pneumonia, unspecified organism Patient Disposition: Home, Self-Care Condition: Stable Instructions: Antibiotic Form, Community Acquired Pneumonia (ED) Additional Instructions: Take medications as prescribed. Follow-up with casino attendant and primary care provider without fail, emergency department immediately for any new or worse symptoms Patient Language: Chinese Prescriptions: New azithromycin 250 mg tablet See Rx Instructions .ROUTE .COMPLEX Qty: 6 0RF Rx Instructions: For 250 mg dose pack: take 500 mg today (day 1), then 250 mg for 4 days (days 2-5) albuterol sulfate [Ventolin HFA] 90 mcg/actuation HFA aerosol inhaler 2 puff inhalation QID PRN (Reason: shortness of breath or wheezing) Qty: 8.5 0RF No Action triamterene-hydrochlorothiazid 37.5-25 mg tablet 1 tablet PO DAILY omega 3-wmo-zib-fish oil [Fish Oil] 1,000 mg (120 mg-180 mg) capsule 2 cap PO DAILY amlodipine 5 mg tablet See Rx Instructions .ROUTE .COMPLEX Qty: 90 3RF Dose Instruction: TAKE 1 TABLET BY MOUTH EVERY DAY Rx Instructions: TAKE 1 TABLET BY MOUTH EVERY DAY metoprolol succinate 25 mg tablet extended release 24 hr 25 mg PO DAILY Qty: 90 2RF Follow-up/Referrals: Sarah Joel SENIOR TECHNICAL WRITER [Primary Care Provider] - 3 Days Stand Alone Forms: Work/School Release IP Time of Disposition: 09:31
== END 2024-04-27 09:36 | disposition home or self-care (01) ==
PROVIDERS: Emergency Provider Nurse Practitioner Family; PCP Nurse Practitioner Family
DX: J18.9 Pneumonia, unspecified organism (principal); I10 Essential (primary) hypertension
CPT/HCPCS: 71046; 99213; G0463

== ENCOUNTER 2024-05-10 15:26 | Outpatient (CLI) | payer OTHER, SELFPAY ==
--- NOTE | ~2024-05-10 | XR_ITS ---
EXAMINATION: XR chest 2V DATE: 05/10/2024 15:34 INDICATION: Pneumonia with 2 weeks of continued cough TECHNIQUE: frontal and lateral views of the chest were obtained. COMPARISON: Chest radiograph dated 04/27/2024 FINDINGS: There is a small somewhat nodular opacity projecting over the posterior left lung base T11 vertebral body on the lateral projection. No other airspace opacities, pulmonary edema, pleural effusion or pne umothorax. The cardiomediastinal silhouette is normal. Visualized bones and soft tissues are unremark able. IMPRESSION: 1. Indeterminate nodular airspace opacity projecting over the posterior left lung base which could be related to residual pneumonia but does raise some concern for neoplasm. Consider further evaluation with low-dose noncontrast chest CT. Reviewed, dictated and finalized at location A. H AUGER OPERATOR IMPRESSION: 1. Indeterminate nodular airspace opacity projecting over the posterior left sonido ng base which could be related to residual pneumonia but does raise some concer n for neoplasm. Consider further evaluation with low-dose noncontrast chest CT.
== END 2024-05-10 15:27 | disposition home or self-care (01) ==
LOC: MICIMG 15:26
PROVIDERS: PCP Internal Medicine Cardiovascular Disease; Visit Provider Nurse Practitioner Adult Health
DX: R91.8 Other nonspecific abnormal finding of lung field (principal); J18.9 Pneumonia, unspecified organism
CPT/HCPCS: 71046

== ENCOUNTER 2024-05-21 07:55 | Outpatient (CLI) | payer OTHER, SELFPAY ==
--- NOTE | ~2024-05-21 | CT_ITS ---
EXAMINATION:CT diagnostic chest w con DATE: 05/21/2024 08:47 INDICATION: Solitary pulmonary nodule. Abnormal chest radiograph. TECHNIQUE: Computed tomography (CT) of the chest was performed with 75 mL Omnipaque 350 intravenous c ontrast. Automated exposure control and iterative reconstruction technique were employed. The dose-le ngth product (DLP) was 829.85 mGy-cm. COMPARISON: Chest CT 06/29/2004, chest 2 views 05/10/2024, 04/27/2024 FINDINGS: There are airspace opacities in basilar left lower lobe. There is a 7 mm nodule in right mi ddle lobe abutting the major fissure. No pleural effusion. The heart size is normal. No pericardial e ffusion. There is mild bilateral gynecomastia. There is mild thoracic spondylosis. IMPRESSION: 1. Airspace opacities in basilar left lower lobe, consistent with pneumonia. 2. 7 mm nodule in right middle lobe, probably benign. Noncontrast low-dose chest CT is recommended in 6-12 months. Reviewed, dictated and finalized at location [] GY ADVISOR IMPRESSION: 1. Airspace opacities in basilar left lower lobe, consistent with pneumonia. 2. 7 mm nodule in right middle lobe, probably benign. Noncontrast low-dose ches t CT is recommended in 6-12 months.
[2024-05-21 08:42] LABS: Estimated Glomerular Filt Rate 58
--- OUTSIDE RECORDS SUMMARY | 2024-05-28 11:32 | XMS_ITS | Referral Summary ---
Author Organization [facility] Address [address] [place] [address] Care Team Providers Care Captain Waiter Name Role Phone Roe Bull MD Primary Care Provider [phone] Source Comments [facility],non-owned Affiliates and Associated Physician Practices is amultiple site organization consisting of ambulatory clinics and hospital sitesin [place], [place], [place] and [place]. This disclosure is being madepursuant to the Care Everywhere program and may not contain all information available regarding this patient. Last updated 18.[facility] [email or web address] (formerly [email or web address] Allergies No known active allergies Medications * Be aware that medications may not be up to date on this document. Alwaysverify current medications with the patient. Medication Sig Dispensed Refills Start Date End Date Status amLODIPine (Norvasc) 5 MG tablet Take 1 (one) tablet by mouth once daily 10/27/2022 Active Eliquis 5 MG tablet Take 1 (one) tablet by mouth 2 times daily 08/03/2022 Active Social History Tobacco Use Types Packs/Day Years Used Date Smoking Tobacco: Never Smokeless Tobacco: Never Tobacco Cessation:Counseling Given: Not Answered Alcohol Use Standard Drinks/Week Comments Not Currently 0 (1 standard drink = 0.6 oz pur e alcohol) Sex and Gender Information Value Date Recorded Sex Assigned at Not on file Gender Identity Not on file Sexual Orientation Not on file Last Filed Vital Signs Vital Sign Reading Time Taken Comments Blood Pressure - - Pulse - - Temperature - - Respiratory Rate - - Oxygen Saturation - - Inhaled Oxygen Concentration - - Weight 124.7 kg (275 lb) 12/01/2022 8:33 AM CDT Height 193 cm (6' 4 ) 12/01/2022 8:33 AM CDT Body Mass Index 33.47 12/01/2022 8:33 AM CDT Plan of Treatment Not on file Care Teams Captain Waiter Relationship Specialty Start Date End Date Roe Bull MD [address] [place] [address] PCP - General Family Medicine 12/01/22
--- OUTSIDE RECORDS SUMMARY | 2024-05-28 11:32 | XMS_ITS | Clinical Summary ---
Author Organization [facility] Address [address] [place] [address] Care Team Providers Care Accordion Maker Name Role Phone Roe Bull MD Primary Care Provider [phone] Source Comments [facility],non-owned Affiliates and Associated Physician Practices is amultiple site organization consisting of ambulatory clinics and hospital sitesin [place], [place]. This disclosure is being madepursuant to the Care Everywhere program and may not contain all information available regarding this patient. Last updated 18.[facility] [employer] Allergies No known active allergies Medications * [...] 12/01/2022 8:33 AM CDT Plan of Treatment Health Maintenance Due Date Last Done Comments COLOGUARD (AGES 45-75) - COL ON CA SCREENING 1970 COLON MONITORING 1970 COLONOSCOPY - COLON CA SCREENING 1969 CT COLONOGRAPHY - COLON CA SCREENING 1970 Colorectal Cancer Screening 1970 FIT - COLON CA SCREENING 1970 FLEX SIG - COLON CA SCREENING 1970 LIPID TESTING 1970 HIV SCREENING 1984 HEPATITIS C SCREENING 08/16/1987 DTAP/TDAP/TD VACCINES (1 - Tdap) 1988 HEPATITIS B VACCINE (1 of 3 - 19+ 3-dose series) 1988 ZOSTER VACCINE (1 of 2) 08/21/2019 SCREENING FOR DIABETES 12/01/2022 DEPRESSION SCREENING 05/30/2023 COVID-19 VACCINE ( - 2023-2 5 season) 2024 INFLUENZA VACCINE (#1) 2024 HIB VACCINE Aged Out No longer eligi ble based on patient's age to complete this topic HPV VACCINE Aged Out No longer eligi ble based on patient's age to complete this topic MENINGOCOCCAL VACCINE Aged Out No shira lara eligible based on patient's age to complete this topic PNEUMOCOCCAL VACCINE Aged Out No long er eligible based on patient's age to complete this topic Care Teams Accordion Maker Relationship Specialty Start Date End Date Roe Bull MD [address] [place] [address] PCP - General Family Medicine 12/01/22
--- OUTSIDE RECORDS SUMMARY | 2024-05-28 11:32 | XMS_ITS | Patient Health Summary ---
Author Organization [facility] Address [address] [place] [address] Care Team Providers Care Corporation Officer Name Role Phone Roe Bull MD Primary Care Provider [phone] Note from [facility],non-owned Affiliates and Associated Physician Practices is amultiple site organization consisting of ambulatory clinics and hospital sitesin [place], [place], [place] and [place]. This disclosure is being madepursuant to the Care Everywhere program and may not contain all information available regarding this patient. Last updated 18.[facility] Allergies No known active allergies Medications * Be aware that medications may not be up to date on this document. Alwaysverify current medications with the patient. * amLODIPine (Norvasc) 5 MG tablet(Started 10/27/2022) Take 1 (one) tablet by mouth once daily * Eliquis 5 MG tablet(Started 08/03/2022) Take 1 (one) tablet by mouth 2 times daily Social History Tobacco Use Types Packs/Day Years [...] Mass Index 33.47 12/01/2022 8:33 AM CDT Procedures * XR KNEE RIGHT 4VW OR MORE(Performed 12/01/2022) Performed for Chronic pain of right knee Results * XR KNEE RIGHT 4VW OR MORE (12/01/2022 8:35 AM CDT) Anatomical Region Laterality Modality Lower Extremity Computed Radiogr aphy Narrative 12/01/2022 8:34 AM CDT Daysi Emmanuel ? 12/02/2022 10:37 AM Please see progress notes for xray results Tab Blackmon MD DIAGNOSTIC IMAGING O RDERABLES Care Teams Corporation Officer Relationship Specialty Start Date End Date Roe Bull MD [address] [place] [address] PCP - General Family Medicine 12/01/22
--- OUTSIDE RECORDS SUMMARY | 2024-05-28 11:32 | XMS_ITS | Encounter Summary ---
Author Organization [facility] Address [address] [place] [address] Care Team Providers Care Neurophysiological Technician Name Role Phone Roe Bull MD Primary Care Provider [phone] Reason for Referral * OP/Amb RFL Auth (Routine) - Closed Specialty Diagnoses / Procedures Referred By Aram t Referred To Contact Diagnoses Effusion of right knee Procedures CO DRAIN/INJECT LARGE [place]INT/[place] [id number] [address] Referral ID Status Reason Start Date Expiration Date Visits Re quested Visits Authorized [id number] Closed 12/01/2022 12/01/2023 1 1 Reason for Visit * Reason Comments Establish Care New patient for righ t knee pain Encounter Details Date Type Department Care Team (Late st Contact Info) Description 12/01/2022 8:10 AM CDT Office Visit [facility] Orthopedics [id number] [place] [id number] [place] [id number] [address] [phone] Chronic pain of right knee (Primary Dx); Effusion of right knee Social History Tobacco Use Types Packs/Day Years Used Date Smoking Tobacco: Never Smokeless Tobacco: Never Tobacco Cessation:Counseling Given: Not Answered Alcohol Use Standard Drinks/Week Comments Not Currently 0 (1 standard drink = 0.6 oz pur e alcohol) Sex and Gender Information Value Date Recorded Sex Assigned at Not on file Gender Identity Not on file Sexual Orientation Not on file documented as of this encounter Last Filed Vital Signs Vital Sign Reading Time Taken Comments Blood Pressure - - Pulse - - Temperature - - Respiratory Rate - - Oxygen Saturation - - Inhaled Oxygen Concentration - - Weight 124.7 kg (275 lb) 12/01/2022 8:33 AM CDT Height 193 cm (6' 4 ) 12/01/2022 8:33 AM CDT Body Mass Index 33.47 12/01/2022 8:33 AM CDT documented in this encounter Progress Notes * Tab Blackmon MD - 12/01/2022 12:01 PM CDT [facility] Orthopedic [facility] Note Patient Name: Manjeet Deras Date of : 1970 Date of Service: 12/01/2022 CHIEF COMPLAINT Chief Complaint Patient presents with ??? Establish Care New patient for right knee pain HISTORY OF PRESENT ILLNESS Manjeet Deras is a 52 year old male who presents today as a new patient for evaluation of right knee pain. The patient reports that he has a history of arthroscopic type surgery on his right knee [id number]. He states that he is unable to remember the injury; however, he believes it was the ligamentson the lateral aspect of his knee. He relates that ever since then, he has had intermittent pain inhis knee; however, his pain usually lasts for a for a few days and resolves. The patient conveys that approximately 3 to 4 weeks ago, the pain returned and has not resolved. He conveys that over the weekend, that his knee symptoms exacerbated when trying to stand after sitting for a few minutes. He notes that his knee was significantly stiff, and he was unable to move his knee after sitting. He conveys that his pain is improved today, and he is able to ambulate on his right lower extremity. Thepatient denies any injuries. He conveys that he has experienced swelling in the knee, especially over this past weekend. He localizes his pain to the medial aspect of the knee. The patient conveys that his pain is alleviated with rest, staying active, and moving. He conveys that he has been starting to walk more on the treadmill, and he noticed his knee symptoms worsened after 2 months of this exercise. He conveys that he has been taking Tylenol, which is slightly beneficial.; however, Tylenol is not as beneficial as ibuprofen has been in the past. The patient conveys that he has been icing the knee as needed for swelling. He has not previously undergone cortisone injections in the knee. The patient reports that he was diagnosed with hypertension early in the year. He states that as a result of that, his primary care physician advised him that he needed to exercise. He conveys that he is utilizing Eliquis, however, this will be discontinued soon. 12/01/2022 8:13 AM Patient-entered Ortho Intake Form Referring provider Relative Reason for visit Right Knee What are your symptoms? Pain Stiffness How did this pain/injury begin? Started about 3 weeks ago. No injury caused it. When did your pain/injury start? 3 weeks ago Does any other area/part of your body hurt? No Active Worker's Comp claim? No Pain level at rest 1 Pain level with activity 6 What makes your pain worse? Standing Treatments tried Over the counter pain medication Currently employed? Yes Smoking status Never Alcohol intake? No Taking opioid/narcotic? No 12/01/2022 8:09 AM Patient-Reported Satisfaction Current state satisfactory? No Prior treatment? No Currently taking narcotics? No 12/01/2022 8:15 AM PROMIS Pain Interference PROMIS PI Score 63 (moderate) 12/01/2022 8:16 AM PROMIS Physical Function PROMIS PF Score 39 (moderate dysfunction) 12/01/2022 8:15 AM Patient-entered KOOS JR Laterality Right Knee KOOS JR Score 59.38 12/01/2022 8:16 AM Depression Screening PHQ-2 Score 0 (Further screening not recommended) PAST HISTORY ??? Medical: No past medical history on file. ??? Surgical: No past surgical history on file. SOCIAL HISTORY Social History Occupational History ??? Not on file Tobacco Use ??? Smoking status: Never ??? Smokeless tobacco: Never Vaping Use ??? Vaping Use: Never used Substance and Sexual Activity ??? Alcohol use: Not Currently ??? Drug use: Not on file ??? Sexual activity: Not on file FAMILY HISTORY No family history on file. CURRENT MEDICATIONS Current Outpatient Medications on File Prior to Visit Medication Sig Dispense Refill ??? amLODIPine (Norvasc) 5 MG tablet Take 1 (one) tablet by mouth once daily ??? Eliquis 5 MG tablet Take 1 (one) tablet by mouth 2 times daily No current facility-administered medications on file prior to visit. ALLERGIES No Known Allergies ??? Vitals Ht 1.93 m (6' 4 ) Wt 124.7 kg (275 lb) BMI 33.47 kg/m?? Body mass index is 33.47 kg/m??. PHYSICAL EXAM Neurological - Coordination: Balance is normal. - Sensation: Sensation is intact to light touch in the bilateral lower extremities. Psychiatric - Orientation to Time, Place, Person: Normal. - Attention span and Concentration: Alert. - Mood and Affect: Normal for current situation. No acute distress. Cardiovascular - Extremities: No swelling in upper or lower extremities other than described below in the extremity exam. Extremities are warm and well-perfused. Lymphatic - Examination: No pitting edema noted in the lower extremities. Musculoskeletal - Gait and Station: Normal gait without assistive devices. Station normal. - Lower Extremity: Right knee. - Examination - Inspection: Skin is intact. No erythema. No ecchymosis. Mild intra-articular knee joint effusion. - Palpation: No tenderness to palpation along the medial or lateral parapatellar borders. Exquisitetenderness to palpation in the middle one-third medial joint line. - Range of Motion: From 0 degrees of extension to 135 degrees of flexion with complaints of pain and tightness. - Stability: Patella is stable to medial and lateral translation. Stable to valgus stress with complaints of medial-sided pain. Stable to varus. - Special Tests: - Patellar Grind: Negative. - Arcadia's: Negative. - Anterior Drawer: 1A. - Posterior Drawer: Stable. - Pivot Shift: Negative. - George: Stable. - Amy: Positive for medial joint line pain. - Lower Extremity: Left knee. - Examination - Inspection: Skin is intact. No erythema or ecchymosis. No appreciable intra- articular knee joint effusion. Asymptomatic medial plica. - Palpation: No tenderness to palpation along the medial or lateral joint line. - Range of Motion: From 0 degrees of extension to 135 degrees of flexion. - Stability: Patella is stable to medial and lateral translation. Stable to varus and valgus stresstesting at 0 and 30 degrees. - Special Tests: - Patellar Grind: Negative. - Arcadia's: Negative. - Anterior Drawer: Stable. - Posterior Drawer: Stable. - Amy: Negative. - George: Stable. Skin - Examination: No lesions noted on upper or lower extremities. Skin is dry, warm and with normal turgor. RESULTS Four weight-bearing views of the right knee were ordered, obtained, and interpreted from an orthopedic standpoint on today's date. These demonstrate no acute fractures or dislocations. Kellgren-Jadiel grade 2 changes within the medial compartment on AP and PA flexed view. No evidence of patella mary or baja. Questionable intra-articular knee joint effusion. Patella is well centered within the trochlear groove on sunrise view. ASSESSMENT ??? Chronic right knee pain, likely medial meniscus tear. ??? Right knee effusion. PLAN ??? Chronic right knee pain, likely medial meniscus tear. ??? Right knee effusion. - Patient Education and Counseling: We had a discussion regarding the patient's symptoms and treatment options. The patient was instructed to avoid aggravating activities. I discussed in detail with the patient regarding his symptoms and complaints. I recommended initiating conservative care. We will trial an intra- articular cortisone injection in the right knee. The risks and benefits of a corticosteroid injection were discussed with the patient and all questions were answered. I provided him with a physician-directed home exercise program. I discussed the use of cold therapy, compressive sleeves and braces, relative rest, and activity modification. He is not a current candidate for anti-in flammatory medications; however, he will be discontinuing his anticoagulation soon, at which time he states he would like to get back on prescription strength [id number] anti-inflammatory medications, as that has previously provided him with good relief of symptoms. If he fails to improve or resolve over the next 4 to 6 weeks, I would recommend proceeding with an MRI due to the high likelihood of medial meniscus pathology, given his subjective complaints, physical exam findings, and well-preserved joint surfaces on weight-bearing radiographs. - Recommended Treatment: Cortisone injection. Home exercise program. Cold therapy. Compressive sleeves and braces. Relative rest. Activity modification. - Patient Agreements: The patient agreed to proceed with a knee corticosteroid injection today. Thepatient was in agreement with the above treatment plan. The patient will call with any concerns. PROCEDURE Knee Injection - Indications: Right knee pain. - Description: The proposed injection site over the right knee was cleansed with alcohol and ChloraPrep. Ethyl chloride spray was used to anesthetize the injection site and a 1.5-inch, 25-gauge needle was used to introduce 1 mL of Kenalog and 3 mL of sterile saline as a vehicle into the right knee using an anterolateral approach. Good flow of medication was noted. The injection site was dressed with a Band-Aid. - Complications: None. - Post procedure Diagnosis: Chronic right knee pain, likely medial meniscus tear and right knee effusion. - Post procedure Disposition: The patient tolerated the procedure well. INSTRUCTIONS The patient will follow up as needed based upon symptoms. The patient will contact the office with any questions or concerns. This note was created for Tab Blackmon MD with the assistance of auto- generated note technology on 12/01/2022 at 12:01 PM. * Janusz Gamboa MA - 12/01/2022 8:31 AM CDT Chief Complaint Patient presents with ??? Establish Care New patient for right knee pain documented in this encounter Procedure Notes * Daysi Emmanuel - 12/01/2022 8:34 AM CDTAssociated Order(s): XR KNEE RIGHT 4VW OR MORE Please see progress notes for xray results documented in this encounter Plan of Treatment Not on file documented as of this encounter Procedures Procedure Name Priority Date/Time Associated Diagnosis Comments XR KNEE RIGHT 4VW OR MORE Routine 12/01/2022 8:35 AM CDT Chronic pain of right knee documented in this encounter Results * XR KNEE RIGHT 4VW OR MORE (12/01/2022 8:35 AM CDT) Anatomical Region Laterality Modality Lower Extremity Computed Radiogr aphy Narrative 12/01/2022 8:34 AM CDT Daysi Emmanuel ? 12/02/2022 10:37 AM Please see progress notes for xray results Tab Blackmon MD DIAGNOSTIC IMAGING O KATHRYN documented in this encounter Visit Diagnoses Diagnosis Chronic pain of right knee- Primary Effusion of right knee Effusion of lower leg joint Chronic pain of right knee documented in this encounter Administered Medications Inactive Administered Medications - up to 3 most recent administrations Medication Order MAR Action Action Date Dose Rate Site 0.9% NaCl injection 3 mL 3 mL, Intra-articular, ONCE, 1 dose, On Tue12/01/22 at 1245 $ Given 12/01/2022 1:32 PM CDT 3 mL Right Knee triamcinolone acetonide (Kenalog-40) injection 40 mg 40 mg, Intra-articular, ONCE, 1 dose, On Tue12/01/22 at 1245, Shake well before using. $ Given 12/01/2022 1:33 PM CDT 40 mg Right Knee documented in this encounter Care Teams Neurophysiological Technician Relationship Specialty Start Date End Date Roe Bull MD [address] [place] [address] PCP - General Family Medicine 12/01/22 documented as of this encounter
--- OUTSIDE RECORDS SUMMARY | 2024-05-28 11:32 | XMS_ITS | Encounter Summary ---
Author Organization [facility] Address [address] [place] [address] Care Team Providers Care Cheese Cook Name Role Phone Roe Bull MD Primary Care Provider [phone] Encounter Details Date Type Department Care Team (Latest Contact Info) Description 12/01/2022 8:35 AM CDT Ancillary Procedure [facility] Orthopedics - Radiology [id number] [place] [id number] [place] [address] [facility] [address] [place] [address] Chronic pain of right knee Social History Tobacco Use Types Packs/Day Years Used Date Smoking Tobacco: Never Smokeless Tobacco: Never Alcohol Use Standard Drinks/Week Comments Not Currently 0 (1 standard drink = 0.6 oz pur e alcohol) Sex and Gender Information Value Date Recorded Sex Assigned at Not on file Gender Identity Not on file Sexual Orientation Not on file documented as of this encounter Plan of Treatment Not on [...] Tab Blackmon MD DIAGNOSTIC IMAGING O RDERABLES documented in this encounter Visit Diagnoses Diagnosis Chronic pain of right knee documented in this encounter Care Teams Cheese Cook Relationship Specialty Start Date End Date Roe Bull MD [address] [place] [address] PCP - General Family Medicine 12/01/22 documented as of this encounter
== END 2024-05-21 07:56 | disposition home or self-care (01) ==
LOC: ANHIMG 07:57
PROVIDERS: PCP Family Medicine; Visit Provider Internal Medicine Cardiovascular Disease
DX: R91.8 Other nonspecific abnormal finding of lung field (principal); R91.1 Solitary pulmonary nodule
CPT/HCPCS: 71260; Q9967

== ENCOUNTER 2025-01-20 13:36 | Emergency (ER) | payer OTHER, SELFPAY ==
[2025-01-20] VITALS (15 sets, daily range): BP systolic 124–146; BP diastolic 75–84; PULSE 50–97; RESP 12–26; TEMP 36.4; O2SAT 97–100
--- NOTE | ~2025-01-20 | XR_ITS ---
EXAMINATION: XR chest 2V 01/20/2025 16:26 INDICATION: Dizziness PROCEDURE: 2 view chest COMPARISON: Comparison to multiple prior studies sequentially, with oldest reviewed study dated 12/03/2011. FINDINGS: The lungs are clear. The cardiomediastinal silhouette is within normal limits. There are no pleural effusions. There is no pneumothorax suspected. IMPRESSION: 1: NO ACUTE CARDIOPULMONARY DISEASE. Reviewed, dictated and finalized at location O.
--- NOTE | ~2025-01-20 | CT_ITS ---
EXAMINATION: CT BRAIN W/O DATE: 01/20/2025 16:16 INDICATION: Dizziness TECHNIQUE: Computed tomography (CT) of the head was performed without intravenous contrast. The dose-length product was 681.00 mGy-cm. Automated exposure control and iterative reconstruction technique were employed. COMPARISON: No prior studies for comparison. FINDINGS: Normal brain parenchymal volume for age. Normal moralez-white differentiation. No acute intracranial hemorrhage, infarction, mass or mass effect. No ventriculomegaly or midline shift. Midline sagittal images demonstrate a normal corpus callosum, craniovertebral junction and sella turcica. Basilar cisterns are patent. Paranasal sinuses and mastoids are pneumatized. No depressed skull fractures. IMPRESSION: 1. No acute intracranial abnormality. Reviewed, dictated and finalized at location O.
--- NOTE | 2025-01-20 13:39 | ECG_ITS ---
Test Date: 2025-01-20 13:44:27 Measurements Intervals Causey Rate: 67 P: 37 [place]: 174 QRS: 3 QRSD: 110 T: 38 QT: 416 QTc: 439 Interpretive Statements SINUS RHYTHM LEFT VENTRICULAR HYPERTROPHY LATERAL INFARCT, AGE INDETERMINATE MINIMAL Q WAVES- ANTEROLATERAL LEADS BASELINE ARTIFACT- I, II, AVR, AVL, AVF, V4-V5 ABNORMAL ECG No previous ECG available for comparison Electronically Signed On 01-20-2025 15:12:34 CDT by Abdullahi Us D.O.
[2025-01-20] MEDS: ONDANSETRON INJ 4 MG/2 ML VIAL IV PUSH (13:48)
[2025-01-20 13:58] LABS: Hematocrit 40.4 % (42.0-52.0); Hemoglobin 13.9 g/dL (14.0-18.0); Immature Granulocyte Percent A 0.3 % (0-0.5); Lymphocytes Absolute Auto 3.63 K/mm3 (0.9-3.2); Mean Corpuscular HGB Conc 34.4 g/dl (32-36); Mean Corpuscular Hemoglobin 27.3 pg (26-34); Mean Corpuscular Volume 79.4 fl (80-100); Nucleated Red Blood Cells Absolute Auto 0.000 K/mm3 (0.0-0.012); Nucleated Red Blood Cells Perc 0.0 % (0.0-0.2); Platelet Count Result 226 k/mm3 (150-375); Red Blood Count 5.09 M/mm3 (4.6-6.20); White Blood Count 7.6 K/mm3 (4.5-10.0)
[2025-01-20] MEDS: diazePAM INJ (*CRX) 10 MG/2 ML SYRINGE 5 MG IV PUSH ×2 (13:59→15:59)
[2025-01-20 14:11] LABS: INR 1.0; Partial Thromboplastin Time 21.8 Seconds (22.3-36.8); Prothrombin Time 13.2 Seconds (11.1-14.7)
[2025-01-20 14:21] LABS: Alanine Aminotransferase 36 U/L (6-50); Albumin Level 4.6 g/dL (3.5-5.1); Alkaline Phosphatase 62 U/L (38-126); Anion Gap 11 mmol/L (4-12); Aspartate Amino Transferase 43 U/L (17-59); Bilirubin,Total 0.7 mg/dL (0.2-1.3); Blood Urea Nitrogen 15 mg/dL (9-20); Calcium 9.2 mg/dL (8.4-10.2); Carbon Dioxide 22 mmol/L (22-30); Chloride 105 mmol/L (98-107); Estimated CRCL calculation 102 ml/min; Estimated Glomerular Filt Rate > 60; Glucose 115 mg/dL (65-110); Lipase 111 U/L (23-300); Potassium 2.9 mmol/L (3.4-5.0); Sodium 138 mmol/L (137-145); Total Protein 7.9 g/dL (6.3-8.2)
[2025-01-20 14:30] LABS: Troponin I 0.014 ng/mL (0.000-0.034)
--- NOTE | 2025-01-20 15:48 | ED.DIZZY ---
HPI - Dizziness General Chief Complaint: Dizziness Stated Complaint: Dizziness, vomiting, diaphoretic Time Seen by Provider: 01/20/25 14:04 History of Present Illness HPI Narrative: Patient is a 54-year-old male who presents to the ER with complaints of dizziness, vomiting, and vertigo symptoms that started approximately 2 hours ago. He reports he is unable to stand at this time due to his dizziness. Patient endorses a history of Meniere's disease and has an appointment with his ENT on , in 4 days. He denies any headache, recent fevers, shortness of breath, or chest pain. Patient reports he last used alcohol 2 days ago but ?it was only a couple of beers. He reports the most distressing symptom right now is his inability to open his eyes without feeling dizzy. Patient denies any other medical history pertinent for ER visit. Related Data Home Medications ?Medication ?Instructions ?Recorded ?Confirmed ?Last Taken ?Type omega 7-lqz-vww-fish oil 1,000 mg 2 cap PO DAILY 08/16/22 11/15/24 Unknown History (120 mg-180 mg) capsule (Fish Oil) triamterene 37.5 1 tablet PO DAILY 04/27/24 11/15/24 Unknown History mg-hydrochlorothiazide 25 mg tablet aspirin 81 mg tablet 81 mg PO DAILY 11/15/24 11/15/24 Unknown History Allergies Allergy/AdvReac Type Severity Reaction Status Date / Time No Known Allergies Allergy Mild Verified 01/20/25 13:51 Review of Systems Review of Systems: All systems reviewed & are unremarkable except as noted in HPI and below PMFSH Past Medical History Medical History Lung nodule seen on imaging study Cardiomyopathy Cerumen impaction 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 HEAD: Normocephalic, atraumatic. EYES: PERRLA and EOMI. ENT: + Nasal congestion, mucous membranes moist. Moderate amount of cerumen in bilateral ear canals, visualized portions of TMs appear normal NECK: Supple. CHEST: Clear to auscultation. No respiratory distress. HEART: Regular rate and rhythm. No murmur heard. Normal peripheral pulses. ABDOMEN: Soft, nontender, nondistended EXTREMITIES: Normal range of motion. No edema. SKIN: Warm, dry, no rash. NEURO: No focal deficits. Alert and oriented x3. 5 out of 5 strength in all extremities, no sensory deficits, no pronator drift, coordination is intact in upper and lower extremities PSYCH: Normal mood and affect. Course Vital Signs Vital signs: Vital Signs Pulse Rate 97 01/20/25 13:40 Respiratory Rate 25 H 01/20/25 13:40 Blood Pressure 137/78 01/20/25 13:40 Pulse Oximetry 98 01/20/25 13:40 Oxygen Delivery Room Air 01/20/25 13:40 Temperature 36.4 C 01/20/25 14:07 Pulse Rate 54 L 01/20/25 18:03 Respiratory Rate 16 01/20/25 18:03 Blood Pressure 146/84 H 01/20/25 18:03 Pulse Oximetry 100 01/20/25 18:03 Oxygen Delivery Room Air 01/20/25 13:40 MDM - Dizziness MDM Narrative Medical decision making narrative: Patient is a 54-year-old male who presents to the ER with complaints of dizziness, vomiting, and vertigo symptoms that started approximately 2 hours ago. He reports he is unable to stand at this time due to his dizziness. Patient endorses a history of Meniere's disease and has an appointment with his ENT on , in 4 days. He denies any headache, recent fevers, shortness of breath, or chest pain. Patient reports he last used alcohol 2 days ago but ?it was only a couple of beers. He reports the most distressing symptom right now is his inability to open his eyes without feeling dizzy. Patient denies any other medical history pertinent for ER visit. Labs Ordered: CBC, CMP, troponin, lipase, INR, PTT Imaging Ordered: Chest x-ray, CT brain Medications Ordered: Meclizine p.o., Valium 5 mg IV x2, 1L NS IV bolus, Potassium IV, Potassium PO Results: Pt's CT scan indicates No acute intracranial abnormality. Pt's chest x-ray indicates NO ACUTE CARDIOPULMONARY DISEASE. Diagnosis: Benign paroxysmal positional vertigo R/T Meniere's disease Patient Education/Shared MDM: Following Debrox administration patient's left eardrum is visible and does not indicate signs of infection. Results of lab work and imaging shared with patient. He endorses improvement of symptoms following medication administration. Patient strongly advised to maintain hydration status upon discharge and follow-up with his ENT doctor on Tuesday, as planned. He will be discharged home with a prescription for Zofran, meclizine, Valium, and scopolamine patches. Strict return precautions provided. Patient verbalized understanding and is in agreement with plan. Vital signs stable at time of discharge. All questions answered. Differential Diagnosis Differential diagnosis: Likely benign paroxysmal positional vertigo, cerebrovascular accident, acute vestibular neuronitis, transient cerebral ischemia and other (Meniere's disease) Lab Data Attestation: I reviewed the patient's lab results. 01/20/25 13:52 01/20/25 13:52 Labs: Lab Results 01/20/25 01/20/25 Range/Units 13:52 16:57 WBC 7.6 (4.5-10.0) K/mm3 RBC 5.09 (4.6-6.20) M/mm3 Hgb 13.9 L (14.0-18.0) g/dL Hct 40.4 L (42.0-52.0) % MCV 79.4 L (80-100) fl MCH 27.3 (26-34) pg MCHC 34.4 (32-36) g/dl RDW 12.9 (11.5-14.5) % Plt Count 226 (150-375) k/mm3 MPV 10.2 (7.4-10.4) fl Immature Gran % (Auto) 0.3 (0-0.5) % Neut % (Auto) 40.8 L (45.5-73.1) % Lymph % (Auto) 47.5 H (18.3-44.2) % [place] % (Auto) 8.4 (2.6-8.5) % Eos % (Auto) 2.5 (0-4.4) % Baso % (Auto) 0.5 (0.2-1.2) % Lymph # (Auto) 3.63 H (0.9-3.2) K/mm3 [place] # (Auto) 0.6 (0.1-0.6) K/mm3 Eos # (Auto) 0.2 (0-0.3) K/mm3 Baso # (Auto) 0.0 (0.0-0.1) K/mm3 Abs Immat Gran (auto) 0.02 (0.00-0.031) K/mm3 Absolute Neuts (auto) 3.1 (1.3-6.7) K/mm3 Absolute Nucleated RBC 0.000 (0.0-0.012) K/mm3 Nucleated RBC % 0.0 (0.0-0.2) % PT 13.2 (11.1-14.7) Seconds INR 1.0 APTT 21.8 L (22.3-36.8) Seconds Sodium 138 (137-145) mmol/L Potassium 2.9 L (3.4-5.0) mmol/L Chloride 105 (98-107) mmol/L Carbon Dioxide 22 (22-30) mmol/L Anion Gap 11 (4-12) mmol/L BUN 15 (9-20) mg/dL Creatinine 1.06 (0.7-1.3) mg/dL Estim Creat Clear Calc 102 ml/min Estimated GFR > 60 (59 - ) Glucose 115 H (65-110) mg/dL Calcium 9.2 (8.4-10.2) mg/dL Magnesium 2.0 (1.6-2.3) mg/dL Total Bilirubin 0.7 (0.2-1.3) mg/dL AST 43 (17-59) U/L ALT 36 (6-50) U/L Alkaline Phosphatase 62 (38-126) U/L Troponin I 0.014 0.013 (0.000-0.034) ng/mL Total Protein 7.9 (6.3-8.2) g/dL Albumin 4.6 (3.5-5.1) g/dL Lipase 111 (23-300) U/L Imaging Data Attestation: I personally reviewed and interpreted this imaging study as follows: Radiologist's impression: Impressions Head CT 01/20/25 16:20 IMPRESSION: 1. No acute intracranial abnormality. Chest X-Ray 01/20/25 16:43 IMPRESSION: 1: NO ACUTE CARDIOPULMONARY DISEASE. Discharge Plan Discharge Clinical Impression: Benign paroxysmal positional vertigo, Meniere disease Patient Disposition: Home Condition: Stable Instructions: Antibiotic Form, Meniere Disease (ED), Benign Paroxysmal Positional Vertigo (ED) Additional Instructions: Please return to the ER with any worsening symptoms. Follow-up with your ENT doctor on Tuesday, as plan. Take all medications as prescribed, including regularly scheduled medications. Patient Language: Occitan Prescriptions: New meclizine 25 mg tablet 25 mg PO QID Qty: 20 0RF diazepam [Valium] 5 mg tablet 5 mg PO TID PRN (Reason: muscle spasm) Qty: 14 0RF ondansetron 8 mg tablet,disintegrating 8 mg PO Q12H PRN (Reason: nausea and vomiting) Qty: 20 0RF scopolamine base 1 mg over 3 days patch 3 day 1 patch transdermal Q72H PRN (Reason: dizziness or vertigo) Qty: 4 0RF No Action triamterene-hydrochlorothiazid 37.5-25 mg tablet 1 tablet PO DAILY omega 3-cwe-zjc-fish oil [Fish Oil] 1,000 mg (120 mg-180 mg) capsule 2 cap PO DAILY Airsupra 90-80 mcg/actuation HFA aerosol inhaler 2 inh inhalation ONCE Qty: 5.9 1RF Rx Instructions: as a single dose; may repeat up to 6 doses per day (12 inhalations) aspirin 81 mg tablet 81 mg PO DAILY amlodipine 5 mg tablet See Rx Instructions .ROUTE .COMPLEX Qty: 90 3RF Dose Instruction: TAKE 1 TABLET BY MOUTH EVERY DAY Rx Instructions: TAKE 1 TABLET BY MOUTH EVERY DAY metoprolol succinate 25 mg tablet extended release 24 hr See Rx Instructions .ROUTE .COMPLEX Qty: 90 2RF Dose Instruction: 25 MG ORALLY DAILY Rx Instructions: 25 MG ORALLY DAILY Follow-up/Referrals: Roe Bull MD [Primary Care Provider, Family Practice] Stand Alone Forms: Work/School Release IP Time of Disposition: 18:36
[2025-01-20] MEDS: SODIUM CHLORIDE 0.9% IV 1,000 ML 999 ML IV CONT (15:53)
[2025-01-20] MEDS: POTASSIUM CHLORIDE INJ 40 MEQ in SODIUM CHLORIDE 0.9% IV 500 ML 130 MEQ IVPB (15:54)
[2025-01-20 15:56] LABS: Magnesium 2.0 mg/dL (1.6-2.3)
--- NOTE | 2025-01-20 16:50 | ECG_ITS ---
Test Date: 2025-01-20 16:57:02 Measurements Intervals [place] Rate: 51 P: 40 [place]: 193 QRS: -15 QRSD: 103 T: 6 QT: 462 QTc: 426 Interpretive Statements SINUS BRADYCARDIA DELAYED PRECORDIAL R/S TRANSITION VOLTAGE CRITERIA FOR LVH MINIMAL Q WAVES- ANTEROLATERAL LEADS HIGH LATERAL INFARCT, AGE INDETERMINATE BASELINE ARTIFACT- I, II, III, AVR, AVL, AVF, V1-V6 ABNORMAL ECG Compared to ECG 01/20/2025 13:44:27 HEART RATE HAS DECREASED Electronically Signed On 01-20-2025 20:15:09 CDT by Abdullahi Us D.O.
[2025-01-20] MEDS: CARBAMIDE PEROXIDE 6.5% OT SOLN 15 ML BTL 5 DROP LEFT EAR (16:59)
[2025-01-20 17:24] LABS: Troponin I 0.013 ng/mL (0.000-0.034)
[2025-01-20] MEDS: POTASSIUM CHLORIDE 20 MEQ ER TABLET 40 MEQ PO (18:14)
== END 2025-01-20 19:00 | disposition home or self-care (01) ==
PROVIDERS: Emergency Medicine; Emergency Provider Registered Nurse; PCP Family Medicine
DX: H81.10 Benign paroxysmal vertigo, unspecified ear (principal); H81.09 Meniere's disease, unspecified ear; I42.9 Cardiomyopathy, unspecified; I10 Essential (primary) hypertension; Z89.029 Acquired absence of unspecified finger(s); R94.31 Abnormal electrocardiogram [ECG] [EKG]; I51.7 Cardiomegaly; R00.1 Bradycardia, unspecified
CPT/HCPCS: 36415; 70450; 71046; 80053; 83690; 83735; 84484; 85025; 85610; 85730; 93005; 96365; 96366; 96375; 96376; 99284; A9270; J2405; J3360; J3480; J7030; J7040

== ENCOUNTER 2025-05-21 14:38 | Outpatient (CLI) | payer OTHER, SELFPAY ==
--- NOTE | ~2025-05-21 | CT_ITS ---
EXAMINATION:CT diagnostic chest wo con DATE: 05/21/2025 14:54 INDICATION: Solitary pulmonary nodule. TECHNIQUE: Computed tomography (CT) of the chest was performed without intravenous contrast. Automated exposure control and iterative reconstruction technique were employed. The dose-length product (DLP) was 384.38 mGy-cm. COMPARISON: Chest CT 05/21/2024 FINDINGS: The lungs demonstrate mild atelectasis. No pleural effusion. The heart size is normal. No pericardial effusion. There is mild bilateral gynecomastia. There is mild thoracic spondylosis. IMPRESSION: 1. Interval resolution of the right middle lobe pulmonary nodule. Reviewed, dictated and finalized at location E. [employer]
== END 2025-05-21 14:39 | disposition home or self-care (01) ==
LOC: MICIMG 14:39
PROVIDERS: PCP Family Medicine; Visit Provider Internal Medicine Cardiovascular Disease
DX: R91.1 Solitary pulmonary nodule (principal)
CPT/HCPCS: 71250